=== PATIENT | male | born 1960 | race Caucasian/White ===

== ENCOUNTER 2020-10-18 13:57 | Inpatient (IN) ==
[2020-10-18] MEDS ORDERED: HYDROmorphone 1 MG/ML SYRINGE IV ONE ×2 (14:46→16:54)
[2020-10-18] MEDS ORDERED: ONDANSETRON 4 MG/2 ML VIAL IV ONE (14:46)
--- NOTE | 2020-10-18 14:56 | Emergency Department Note ---
Abdominal Pain HPI General Chief Complaint: Abdominal Pain Stated Complaint: pancreatitis Time Seen by Provider: 10/18/20 14:07 Source: patient Mode of arrival: wheelchair Limitations: no limitations History of Present Illness HPI Narrative: Narrative: Presents to room T5 for evaluation of epigastric abdominal pain. The patient was seen in the emergency department 2 days ago and diagnosed via elevated lipase and CT scan with simple pancreatitis. The patient at that time wished to attempt a trial of outpatient treatment however today followed up with his PCP and was noted to have continued worsening pain with nausea and vomiting. The patient denies any history of biliary disease. CT scan previously showed no evidence of cholelithiasis or biliary ductal dilation. The patient denies alcohol use. He has no knowledge of elevated triglycerides. The patient denies any other complaints at this time. He describes the pain as constant and severe. No exacerbating or alleviating factors. Related Data Home Medications Medication Instructions Recorded Confirmed amlodipine 5 mg tablet 5 mg PO QDAY 06/01/20 10/18/20 aspirin 81 mg tablet,delayed 81 mg PO QDAY 06/01/20 10/18/20 release atorvastatin 10 mg tablet 40 mg PO QDAY tab 06/01/20 10/18/20 clopidogrel 75 mg tablet 75 mg PO QDAY 06/01/20 10/18/20 metoprolol succinate 25 mg 25 mg PO QDAY 06/01/20 10/18/20 tablet,extended release 24 hr Previous Rx's Medication Instructions Recorded hydrocodone-acetaminophen 1 tab PO Q4H PRN #16 tab 10/16/20 promethazine 25 mg PO Q6H PRN #16 tab 10/16/20 Allergies Allergy/AdvReac Type Severity Reaction Status Date / Time No Known Drug Allergies Allergy Verified 10/18/20 13:19 Review of Systems ROS ROS Narrative: Narrative: All systems ED: reviewed and negative except as stated. PFSH Narrative Patient History Narrative: Narrative: Medical/Surgical/Family History All Active Problems (Updated 10/18/20 @ 14:59 by Carlos Santana MD) Abdominal pain (Acute) Acute pancreatitis (Acute) Constipation (Acute) Acute pancreatitis (Acute) Erectile dysfunction (Acute) Viral syndrome (Acute) Left rotator cuff tear (Acute) Rotator cuff tendinitis (Acute) History of coronary artery stent placement (Acute) CAD (coronary artery disease) (Acute) Abnormal stress test (Acute) Claudication (Acute) Lumbar spondylosis (Acute) Abdominal pain, LUQ (Acute) Chronic RUQ pain (Acute) Mid back pain on right side (Acute) Right flank pain (Acute) Abdominal pain (Acute) Eustachian tube dysfunction (Acute) Hx of LASIK (Acute) History of colonoscopy (Acute 05/29/15) Left hip pain (Acute) Headache (Acute) DJD (degenerative joint disease) of thoracic spine (Acute) Dyspnea on exertion (Acute) Skin tag (Acute) Leg length discrepancy (Acute) Spasm of thoracic back muscle (Acute) Bilateral shoulder pain (Acute) Bilateral hip pain (Acute) SOB (shortness of breath) on exertion (Acute) Pre-diabetes (Acute) Chest pain (Acute) Sprain of back (Acute) Obesity (Acute) Hyperglycemia (Acute) Medical History Abdominal pain Abdominal pain, LUQ Chronic RUQ pain DJD (degenerative joint disease) of thoracic spine Dyspnea on exertion Eustachian tube dysfunction Headache Hyperglycemia Left hip pain Leg length discrepancy Lumbar spondylosis Mid back pain on right side Obesity Right flank pain Skin tag Spasm of thoracic back muscle Sprain of back Viral syndrome Surgical History History of colonoscopy (05/29/15) Hx of LASIK Bilateral Family History Father , a Diabetes mellitus Aneurysm Mother Heart disease Brother Heart disease Grandfather , of diabetic coma Diabetes mellitus Paternal Great Social History Smoking Status: Former smoker Substance Use: does not use Exam Narrative Narrative: Narrative: General Limitations: no limitations General appearance: Present alert and in no apparent distress Head Head: Present atraumatic, normocephalic and normal inspection Eye Eye: Present normal appearance and EOMI; Absent conjunctival injection ENT ENT: Present normal exam and mucous membranes moist Neck Neck: Present normal inspection and trachea midline Respiratory Respiratory: Present normal lung sounds bilaterally; Absent respiratory distress Cardiovascular Cardiovascular: Present regular rate, normal rhythm and normal heart sounds Adbominal Abdominal: Present soft; Absent distention, tenderness, guarding and rebound Extremities Extremities: Present normal inspection; Absent tenderness Back Back: Present normal inspection; Absent tenderness Neurological Neurological: Present alert, oriented X3 and CN II-XII intact; Absent motor sensory deficit Psychiatric Psychiatric: Present normal affect and normal mood Skin Skin: Present warm (WNL) and dry; Absent rash Course Vital Signs Vital signs: Vital Signs Temperature 97.7 F 10/18/20 13:59 Pulse Rate 71 10/18/20 13:59 Respiratory Rate 16 10/18/20 13:59 Blood Pressure 130/84 10/18/20 13:59 Pulse Oximetry (%) 96 10/18/20 13:59 Temperature 97.7 F 10/18/20 13:59 Pulse Rate 63 10/18/20 14:41 Respiratory Rate 16 10/18/20 13:59 Blood Pressure 130/84 10/18/20 13:59 Pulse Oximetry (%) 96 10/18/20 14:41 MDM MDM Narrative Medical decision making narrative: Narrative: The patient presents for evaluation of abdominal pain with nausea and vomiting in the context of previous diagnosis. The patient attempted a trial of outpatient treatment however this was unsuccessful and he is having worsening symptoms. The patient has a nonsur gical abdomen but does have significant symptoms. He will benefit from IV fluids with IV analgesics and antiemetics. I discussed the case with the admitting hospitalist, Dr. Ding Medical Records Medical records reviewed: Yes I reviewed the patient's medical records. Lab Data Lab results reviewed: Yes I reviewed the patient's lab results. Discharge Plan Patient/Caregiver Discharge Instructions Pt seen by NEWS GATHERING TECHNICIAN/PA only: No Clinical Impression: Abdominal pain, Acute pancreatitis Patient Disposition: Xfer As Inpt ([facility]) Follow up with: Griselda Andre PA-C [Primary Care Provider] - Prescriptions: No Action clopidogrel 75 mg tablet 75 mg PO QDAY RF: 0 atorvastatin 10 mg tablet 40 mg PO QDAY RF: 0 amlodipine 5 mg tablet 5 mg PO QDAY RF: 0 aspirin 81 mg tablet,delayed release (DR/EC) 81 mg PO QDAY RF: 0 metoprolol succinate 25 mg tablet extended release 24 hr 25 mg PO QDAY RF: 0 promethazine 25 mg tablet 25 mg PO Q6H PRN (Reason: nausea and vomiting) Qty: 16 RF: 0 hydrocodone-acetaminophen 5-325 mg tablet 1 tab PO Q4H PRN (Reason: pain) Qty: 16 RF: 0
[2020-10-18] MEDS ORDERED: 0.9 % SODIUM CHLORIDE 1,000 ML IV SCH ×4 (15:00→17:24)
[2020-10-18 15:34] LABS: Basophils # (Auto) 0.02 K/mcL (0.00-0.20); Basophils % (Auto) 0.2 % (0.0-2.0); Eosinophils % (Auto) 0.9 % (0.0-7.0); Hematocrit 43.5 % (41.0-55.0); Hemoglobin 14.5 g/dL (13.5-16.5); Lymphocytes # (Auto) 1.64 K/mcL (1.50-4.80); Lymphocytes % (Auto) 14.2 % (15.0-49.0); Mean Cell Volume 90.8 fL (80.0-100.0); Mean Corpuscular HGB Conc 33.3 g/dL (31.0-36.0); Mean Platelet Volume 12.1 fL (7.4-10.4); Monocytes # (Auto) 1.14 K/mcL (0.10-0.90); Monocytes % (Auto) 9.9 % (1.0-12.0); Neutrophils % (Auto) 74.8 % (38.0-78.0); Platelet Count 131 K/mcL (140-440); RBC 4.79 M/mcL (4.50-5.90); Red Cell Distribution Width 13.3 % (11.5-14.5); WBC 11.5 K/mcL (4.5-11.0)
[2020-10-18 15:54] LABS: ALT/SGPT 19 U/L (<40); AST/SGOT 15 U/L (<40); Albumin 3.8 gm/dL (3.2-5.2); Albumin/Globulin Ratio 1.2 (1.0-2.3); Alkaline Phosphatase 111 U/L (39-117); Bilirubin,Total 0.6 mg/dL (0.1-1.0); Blood Urea Nitrogen 13 mg/dL (6-20); Calcium 8.8 mg/dL (8.6-10.4); Carbon Dioxide 26 mmol/L (22-30); Chloride 96 mmol/L (96-108); Globulin 3.2 gm/dL (2.2-3.7); Glomerular Filtration Rate 92; Glucose 96 mg/dL (70-105)
[2020-10-18] MEDS ORDERED: morphine 4 MG/ML VIAL IV PRN ×3 (16:10→18:12)
[2020-10-18] MEDS ORDERED: ONDANSETRON 4 MG/2 ML VIAL IV PRN ×2 (16:10→17:24)
[2020-10-18] MEDS ORDERED: HYDROcodone/APAP 5/325MG TABLET PO PRN ×2 (16:10→17:24)
[2020-10-18] MEDS ORDERED: ACETAMINOPHEN 325 MG TABLET PO PRN ×3 (16:10→18:12)
--- NOTE | 2020-10-18 16:29 | Internal Med History&Physical ---
HPI History of Present Illness Patient information: Note initiated : 10/18/20 at 4:21 pm Service Date, if different from initiated Date: [] Patient: Dieter Johnson Jr 60 y/o M admitted on for pancreatitis. Chief Complaint: [] History of present illness: Mr. Alex Soto is a 60 year old M history of CAD status post PCI with 2 stents placement, essential hypertension, mixed dyslipidemia, obesity, presenting with 4-day history of left upper quadrant abdominal pain. There was no prior similar episode. In the past Thursday patient had acute onset left upper quadrant abdominal pain. The pain was 8 out of 10 in severity at its max and currently it is 5 out of 10. The pain is described as sharp. The pain is constant. There is no exacerbating or alleviating factors. The patient is also have associated nausea and nonbloody nonbilious vomiting up to 3 episodes since onset. He is also complained of constipation. He is also committing of decrease in appetite. He denies any fever or chills. There is no shortness of breath. There is no recent changes of his medications. Patient denies any alcohol consumption. He presented to our ED ED on the past Thursday and he was discharged home with prescriptions of [place] and Zofran for symptoms controlled. Earlier today he was seen by his PCP office and he was instructed to come back to the ED for nonresolving symptoms. Constitutional Constitutional: Absent chills, excessive sweating, fatigue, fever(s) and weakness EENT Eyes: Absent blurry vision, change in vision, loss of vision and other visual disturbances Ears: Absent decreased hearing and tinnitus Nose, mouth and throat: Absent abnormal hearing, dry mouth, headache(s), nasal congestion and sore throat Cardiovascular Cardiovascular: Absent chest pain, chest pain at rest, edema, irregular heart rhythm and palpatations Respiratory Respiratory: Absent cough, dyspnea and wheezing Gastrointestinal Gastrointestinal: Present abdominal pain, constipation, nausea and vomiting; Absent diarrhea Musculoskeletal Musculoskeletal: Absent back pain, deformity, limited range of motion, muscle cramps, muscle weakness and numbness Integumentary Integumentary: Absent lesions, rash and wounds Neurological Neurological: Absent focal weakness, headache(s) and numbness Psychiatric Psychiatric: Absent anxiety, depression and hallucinations PFSH PFSH All Active Problems (Updated 10/18/20 @ 16:27 by Jalil Quiroz MD) Mixed dyslipidemia (Acute) Essential (primary) hypertension (Acute) Class 1 obesity with body mass index (BMI) of 32.0 to 32.9 in adult (Acute) Idiopathic acute pancreatitis (Acute) Abdominal pain (Acute) Acute pancreatitis (Acute) Constipation (Acute) Acute pancreatitis (Acute) Erectile dysfunction (Acute) Viral syndrome (Acute) Left rotator cuff tear (Acute) Rotator cuff tendinitis (Acute) History of coronary artery stent placement (Acute) CAD (coronary artery disease) (Acute) Abnormal stress test (Acute) Claudication (Acute) Lumbar spondylosis (Acute) Abdominal pain, LUQ (Acute) Chronic RUQ pain (Acute) Mid back pain on right side (Acute) Right flank pain (Acute) Abdominal pain (Acute) Eustachian tube dysfunction (Acute) Hx of LASIK (Acute) History of colonoscopy (Acute 05/29/15) Left hip pain (Acute) Headache (Acute) DJD (degenerative joint disease) of thoracic spine (Acute) Dyspnea on exertion (Acute) Skin tag (Acute) Leg length discrepancy (Acute) Spasm of thoracic back muscle (Acute) Bilateral shoulder pain (Acute) Bilateral hip pain (Acute) SOB (shortness of breath) on exertion (Acute) Pre-diabetes (Acute) Chest pain (Acute) Sprain of back (Acute) Obesity (Acute) Hyperglycemia (Acute) Medical History Abdominal pain Abdominal pain, LUQ Chronic RUQ pain DJD (degenerative joint disease) of thoracic spine Dyspnea on exertion Eustachian tube dysfunction Headache Hyperglycemia Left hip pain Leg length discrepancy Lumbar spondylosis Mid back pain on right side Obesity Right flank pain Skin tag Spasm of thoracic back muscle Sprain of back Viral syndrome Surgical History History of colonoscopy (05/29/15) Hx of LASIK Bilateral Family History Father , a Diabetes mellitus Aneurysm Mother Heart disease Brother Heart disease Grandfather , of diabetic coma Diabetes mellitus Paternal Great Social History marital status: occupational status: employed occupation: [employer] substance use type: does not use MEDS/ALLERGIES Home Medications and Allergies Home Medications Medication Instructions Recorded Confirmed Type amlodipine 5 mg tablet 5 mg PO QDAY 06/01/20 10/18/20 History aspirin 81 mg tablet,delayed 81 mg PO QDAY 06/01/20 10/18/20 History release atorvastatin 10 mg tablet 40 mg PO QDAY tab 06/01/20 10/18/20 History clopidogrel 75 mg tablet 75 mg PO QDAY 06/01/20 10/18/20 History metoprolol succinate 25 mg 25 mg PO QDAY 06/01/20 10/18/20 History tablet,extended release 24 hr hydrocodone-acetaminophen 1 tab PO Q4H PRN #16 tab 10/16/20 10/18/20 Rx promethazine 25 mg PO Q6H PRN #16 tab 10/16/20 10/18/20 Rx Allergies Allergy/AdvReac Type Severity Reaction Status Date / Time No Known Drug Allergies Allergy Verified 10/18/20 13:19 EXAM Constitutional Vitals: Temp Pulse Resp BP Pulse Ox 36.5 C 64 16 120/82 90 10/18/20 13:59 10/18/20 16:00 10/18/20 13:59 10/18/20 16:00 10/18/20 16:00 General appearance: cooperative and no acute distress Head Head exam: Present atraumatic and normocephalic Eye Eye exam: Present EOMI and PERRL ENT ENT exam: Present mucous membranes moist, normal exam and normal external ear exam Neck Neck exam: Present normal inspection; Absent lymphadenopathy, tenderness and thyromegaly Respiratory Respiratory exam: Absent accessory muscle use, respiratory distress and wheezes Cardiovascular Cardiovascular exam: Present normal rate and rhythm; Absent JVD GI/Abdominal GI/Abdominal exam: Present normal bowel sounds, soft and tenderness; Absent distended, guarding, organomegaly and rebound Rectal Rectal exam: Present deferred Extremities Exam Extremities exam: Present full ROM, normal capillary refill and normal inspection; Absent tenderness Neurological Exam Neurological exam: Present alert, CN II-XII intact and oriented X3; Absent motor sensory deficit Psychiatric Psychiatric exam: Present normal affect and normal mood; Absent anxious and depressed Skin Skin exam: Present dry and intact DATA Data Completed and Pending Labs: Labs from last 24 hours 10/18/20 10/18/20 14:40 14:40 WBC 11.5 H RBC 4.79 Hgb 14.5 Hct 43.5 MCV 90.8 MCH 30.3 MCHC 33.3 RDW 13.3 Plt Count 131 L MPV 12.1 H Neut % (Auto) 74.8 Lymph % (Auto) 14.2 L [place] % (Auto) 9.9 Eos % (Auto) 0.9 Baso % (Auto) 0.2 Lymph # (Auto) 1.64 [place] # (Auto) 1.14 H Eos # (Auto) 0.10 Baso # (Auto) 0.02 Absolute Neutrophils 8.62 H Sodium 132 L Potassium 3.8 Chloride 96 Carbon Dioxide 26 Anion Gap 10.0 BUN 13 Creatinine 0.9 GFR Calculation 92 Glucose 96 Calcium 8.8 Total Bilirubin 0.6 AST 15 ALT 19 Alkaline Phosphatase 111 Total Protein 7.0 Albumin 3.8 Globulin 3.2 Albumin/Globulin Ratio 1.2 Lipase 40 A/P Assessment and plan (1) Idiopathic acute pancreatitis: Status: Acute (2) Constipation: Status: Acute Qualifiers: Constipation type: unspecified constipation type Qualified Code(s): K59.00 - Constipation, unspecified (3) Class 1 obesity with body mass index (BMI) of 32.0 to 32.9 in adult: Status: Acute (4) Essential (primary) hypertension: Status: Acute (5) Mixed dyslipidemia: Status: Acute Narrative A/P Narrative: 1. Acute idiopathic pancreatitis: Admit to inpatient med surg Clear liquid diet, advance to regular as tolerated 2L NS bolus, followed by NS@250cc/hr Zofran IV PRN nausea vomiting [place] PRN moderated pain Morphine 4mg IV q4hr PRN severe pain 2. h/o CAD s/p PCI with 2 stent placement: Aspirin Plavix Statin Oral antihypertensives including Metoprolol ER and Amlodipine 3. Essential HTN: Currently normotensive Oral antihypertensives including Metoprolol ER and Amlodipine 4. Mixed dyslipidemia: Continue statin therapy 5. Class 1 obesity BMI 32.0 to 32.9: Visual Education Teacher patient on life style modifications such as healthy diet and regular exercise in order to lose weight Time Spent With Patient Time: Total time spent is greater than 50% in coordination of care (as documented) at patient's floor/unit and/or counseling patient: Total time spent with greater than 50% in coordination of care (as documented) at patient's floor/unit and/or counseling patient:: 25 - 35 minutes
[2020-10-18] MEDS ORDERED: traZODone HCL 50 MG TABLET PO PRN ×3 (17:24→21:00)
[2020-10-18] MEDS ORDERED: ASPIRIN 81 MG TAB.CHEW CHEWED ONE (17:53)
[2020-10-18] MEDS ORDERED: amLODIPine 5 MG TABLET PO ONE (17:54)
[2020-10-18] MEDS ORDERED: METOPROLOL SUCCINATE 25 MG TAB.XL.24H PO ONE (18:12)
[2020-10-18] MEDS ORDERED: ATORVASTATIN 40 MG TABLET PO ONE (18:12)
[2020-10-18] MEDS ORDERED: CLOPIDOGREL 75 MG TABLET PO ONE (18:12)
[2020-10-18] MEDS: 0.9 % SODIUM CHLORIDE 1,000 ML IV SCH ×2 (18:25→20:37)
[2020-10-18] MEDS ORDERED: morphine 4 MG/ML VIAL ONE ×2 (19:32→22:06)
[2020-10-18] MEDS: SENNOSIDES 1 TABLET PO SCH (20:33)
[2020-10-18] MEDS: DOCUSATE SODIUM 100 MG CAPSULE PO SCH (20:33)
[2020-10-18] MEDS: 0.9 % SODIUM CHLORIDE 10 ML SYRINGE IV SCH (20:33)
[2020-10-18] MEDS ORDERED: DOCUSATE SODIUM 100 MG CAPSULE PO SCH ×2 (21:00)
[2020-10-18] MEDS ORDERED: SENNOSIDES 1 TABLET PO SCH ×2 (21:00)
[2020-10-18] MEDS ORDERED: 0.9 % SODIUM CHLORIDE 10 ML SYRINGE IV SCH ×2 (22:00)
[2020-10-18] MEDS: morphine 4 MG/ML VIAL IV PRN (22:07)
[2020-10-19] MEDS ORDERED: morphine 4 MG/ML VIAL ONE ×3 (00:24→05:18)
[2020-10-19] MEDS: morphine 4 MG/ML VIAL IV PRN ×4 (00:25→09:25)
[2020-10-19] MEDS: 0.9 % SODIUM CHLORIDE 1,000 ML IV SCH ×4 (00:28→20:53)
[2020-10-19] MEDS: 0.9 % SODIUM CHLORIDE 10 ML SYRINGE IV SCH ×3 (05:20→20:55)
[2020-10-19 08:30] LABS: Basophils # (Auto) 0.04 K/mcL (0.00-0.20); Basophils % (Auto) 0.4 % (0.0-2.0); Eosinophils # (Auto) 0.18 K/mcL (0.00-0.70); Eosinophils % (Auto) 1.9 % (0.0-7.0); Hematocrit 39.3 % (41.0-55.0); Hemoglobin 12.8 g/dL (13.5-16.5); Lymphocytes % (Auto) 19.5 % (15.0-49.0); Mean Cell Volume 92.3 fL (80.0-100.0); Mean Corpuscular HGB Conc 32.6 g/dL (31.0-36.0); Mean Platelet Volume 12.1 fL (7.4-10.4); Monocytes # (Auto) 1.02 K/mcL (0.10-0.90); Monocytes % (Auto) 10.5 % (1.0-12.0); Neutrophils % (Auto) 67.7 % (38.0-78.0); Platelet Count 113 K/mcL (140-440); RBC 4.26 M/mcL (4.50-5.90); Red Cell Distribution Width 13.3 % (11.5-14.5); WBC 9.7 K/mcL (4.5-11.0)
[2020-10-19] MEDS ORDERED: amLODIPine 5 MG TABLET PO SCH ×2 (09:00)
[2020-10-19] MEDS ORDERED: METOPROLOL SUCCINATE 25 MG TAB.XL.24H PO SCH ×2 (09:00)
[2020-10-19] MEDS ORDERED: ATORVASTATIN 40 MG TABLET PO SCH ×2 (09:00)
[2020-10-19] MEDS ORDERED: ENOXAPARIN 40 MG/0.4 ML SYRINGE SQ SCH ×2 (09:00)
[2020-10-19] MEDS ORDERED: CLOPIDOGREL 75 MG TABLET PO SCH ×2 (09:00)
[2020-10-19] MEDS ORDERED: ASPIRIN 81 MG TAB.CHEW PO SCH ×2 (09:00)
--- NOTE | 2020-10-19 09:01 | Internal Med Progress Note ---
SUBJECTIVE Subjective Patient information: Note initiated : 10/19/20 at 8:56 am Service Date, if different from initiated Date: [] Patient: Dieter Johnson Jr 60 y/o M admitted on 10/18/20 for pancreatitis. Chief Complaint: [acute idiopathic pancreatitis] History of present illness: Mr. Alex Soto is a 60 year old M history of CAD status post PCI with 2 stents placement, essential hypertension, mixed dyslipidemia, obesity, presenting with 4-day history of left upper quadrant abdominal pain. There was no prior similar episode. In the past Thursday patient had acute onset left upper quadrant abdominal pain. The pain was 8 out of 10 in severity at its max and currently it is 5 out of 10. The pain is described as sharp. The pain is constant. There is no exacerbating or alleviating factors. The patient is also have associated nausea and nonbloody nonbilious vomiting up to 3 episodes since onset. He is also complained of constipation. He is also committing of decrease in appetite. He denies any fever or chills. There is no shortness of breath. There is no recent changes of his medications. Patient denies any alcohol consumption. He presented to our ED ED on the past Thursday an d he was discharged home with prescriptions of [place] and Zofran for symptoms controlled. Earlier today he was seen by his PCP office and he was instructed to come back to the ED for nonresolving symptoms. 10/19: Still not tolerating even clear liquid diet. Still does not have a bowel movement. 8/10 sharp constant LUQ abdominal pain with radiation to the LLQ abdomen. Denies nausea vomiting or diarrhea. Constitutional Vitals: Vital Signs Temp Pulse Resp BP Pulse Ox 37.0 C 67 19 119/79 94 10/19/20 07:18 10/19/20 07:18 10/19/20 07:18 10/19/20 07:18 10/19/20 07:18 Period Temp Pulse Resp BP Sys/[place] Pulse Ox Last 24 Hr 36.5 C-37.3 C 61-76 16-20 116-130/66-86 87-96 Intake and Output 10/18/20 10/19/20 10/19/20 21:59 05:59 13:59 Intake Total 899 2203 Output Total 1175 Balance 899 1028 Weight 110.314 kg Intake & Output: Intake & Output 10/18/20 10/19/20 10/19/20 21:59 05:59 13:59 Intake Total 899 2203 Output Total 1175 Balance 899 1028 Weight 110.314 kg Intake: IV 779 1962 Sodium Chloride 0.9% 1,000 ml @ 779 1963 250 mls/hr IV .Q4H [facility] Rx#: [id number] Oral 120 240 Output: Void Amount 1175 Other: Meal Dinner Percent of Meal Consumed 50% Urine Appearance Clear Urine Color [place] General appearance: cooperative and no acute distress Head Head exam: Present atraumatic and normocephalic Eye Eye exam: Present EOMI and PERRL ENT ENT exam: Present mucous membranes moist, normal exam and normal external ear exam Neck Neck exam: Present normal inspection; Absent lymphadenopathy, tenderness and thyromegaly Respiratory Respiratory exam: Absent accessory muscle use, respiratory distress and wheezes Cardiovascular Cardiovascular exam: Present normal rate and rhythm; Absent JVD GI/Abdominal GI/Abdominal exam: Present normal bowel sounds and soft; Absent organomegaly and tenderness Rectal Rectal exam: Present deferred Extremities Exam Extremities exam: Present full ROM, normal capillary refill and normal inspection; Absent tenderness Neurological Exam Neurological exam: Present alert, CN II-XII intact and oriented X3; Absent motor sensory deficit Psychiatric Psychiatric exam: Present normal affect and normal mood; Absent anxious and depressed Skin Skin exam: Present dry and intact OBJ DATA Labs CBC & Chem 7: 10/19/20 06:25 10/18/20 14:40 Labs: Abnormal Lab Results 10/19/20 10/18/20 10/18/20 06:25 14:40 14:40 WBC 11.5 H RBC 4.26 L Hgb 12.8 L Hct 39.3 L Plt Count 113 L 131 L MPV 12.1 H 12.1 H Lymph % (Auto) 14.2 L [place] # (Auto) 1.02 H 1.14 H Absolute Neutrophils 8.62 H Sodium 132 L Meds: Medications Acetaminophen (Acetaminophen 325 Mg Tablet) 650 mg PO Q6HP PRN; Protocol PRN Reason: Per Pain Protocol/Fever > 101 Hydrocodone Bitart/Acetaminophen (Hydrocodone/Apap 5/325mg Tablet) 1 tab PO Q4HP PRN; Protocol PRN Reason: pain Amlodipine Besylate (Amlodipine 5 Mg Tablet) 5 mg PO QDAY [facility] Aspirin (Aspirin 81 Mg Tab.Chew) 81 mg PO DAILY [facility] Atorvastatin Calcium (Atorvastatin 40 Mg Tablet) 40 mg PO DAILY [facility] Clopidogrel Bisulfate (Clopidogrel 75 Mg Tablet) 75 mg PO QDAY [facility] Docusate Sodium (Docusate Sodium 100 Mg Capsule) 100 mg PO BID [facility] Last Admin: 10/18/20 20:33 Dose: Not Given Documented by: Enoxaparin Sodium (Enoxaparin 40 Mg/0.4 Ml Syringe) 40 mg SQ DAILY [facility] Metoprolol Succinate (Metoprolol Succinate 25 Mg Tab.Xl.24h) 25 mg PO QDAY [facility] Morphine Sulfate (Morphine 4 Mg/Ml Vial) 4 mg IV Q2HP PRN; Protocol PRN Reason: Per Pain Protocol Last Admin: 10/19/20 05:32 Dose: 4 mg Documented by: Ondansetron HCl (Ondansetron 4 Mg/2 Ml Vial) 4 mg IV Q6HP PRN PRN Reason: Nausea And Vomiting Senna (Sennosides 1 Tablet) 2 tab PO HS [facility] Last Admin: 10/18/20 20:33 Dose: Not Given Documented by: Sodium Chloride (0.9 % Sodium Chloride 10 Ml Syringe) 10 ml IV Q8 [facility] Last Admin: 10/19/20 05:20 Dose: Not Given Documented by: Trazodone HCl (Trazodone Hcl 50 Mg Tablet) 50 mg PO HSP PRN PRN Reason: Insomnia A/P Assessment and plan (1) Idiopathic acute pancreatitis: Status: Acute (2) Constipation: Status: Acute Qualifiers: Constipation type: unspecified constipation type Qualified Code(s): K59.00 - Constipation, unspecified (3) Class 1 obesity with body mass index (BMI) of 32.0 to 32.9 in adult: Status: Acute (4) Essential (primary) hypertension: Status: Acute (5) Mixed dyslipidemia: Status: Acute (6) Anemia, normocytic normochromic: Status: Acute Narrative A/P Narrative: 1. Acute idiopathic pancreatitis: Stays in inpatient med surg Clear liquid diet, advance to regular as tolerated NS, decrease from 250 to 100cc/hr Zofran IV PRN nausea vomiting [place] PRN moderated pain Morphine 4mg IV q2hr PRN severe pain 2. h/o CAD s/p PCI with 2 stent placement: Aspirin Plavix Statin Oral antihypertensives including Metoprolol ER and Amlodipine 3. Essential HTN: Currently normotensive Oral antihypertensives including Metoprolol ER and Amlodipine 4. Mixed dyslipidemia: Continue statin therapy 5. Class 1 obesity BMI 32.0 to 32.9: Sustainability Coach patient on life style modifications such as healthy diet and regular exercise in order to lose weight 6. Anemia, normocytic normochromic: cbc w/ auto diff daily, transfuse pRBC if hemoglobin <7.0, active bleeding, or symptomatic GI ppx: not currently indicated DVT ppx: Lovenox Code status: Full Prognosis: stable Disposition: inpatient med/surg Time Spent With Patient Time: Total time spent is greater than 50% in coordination of care (as documented) at patient's floor/unit and/or counseling patient: QUALITY VTE Deep Vein Thrombosis/Pulmonary Embolism Present on Admission: No
[2020-10-19] MEDS ORDERED: SENNOSIDES 1 TABLET PO ONE (09:07)
[2020-10-19] MEDS: DOCUSATE SODIUM 100 MG CAPSULE PO SCH ×2 (09:19→20:54)
[2020-10-19] MEDS: ASPIRIN 81 MG TAB.CHEW PO SCH (09:20)
[2020-10-19] MEDS: ATORVASTATIN 40 MG TABLET PO SCH (09:21)
[2020-10-19] MEDS: ENOXAPARIN 40 MG/0.4 ML SYRINGE SQ SCH (09:22)
[2020-10-19] MEDS: CLOPIDOGREL 75 MG TABLET PO SCH (09:23)
[2020-10-19] MEDS: amLODIPine 5 MG TABLET PO SCH (09:23)
[2020-10-19] MEDS: METOPROLOL SUCCINATE 25 MG TAB.XL.24H PO SCH (09:24)
[2020-10-19 09:44] LABS: ALT/SGPT 13 U/L (<40); AST/SGOT 11 U/L (<40); Albumin 3.5 gm/dL (3.2-5.2); Albumin/Globulin Ratio 1.7 (1.0-2.3); Alkaline Phosphatase 92 U/L (39-117); Bilirubin,Total 0.6 mg/dL (0.1-1.0); Blood Urea Nitrogen 10 mg/dL (6-20); Carbon Dioxide 22 mmol/L (22-30); Chloride 101 mmol/L (96-108); Globulin 2.1 gm/dL (2.2-3.7); Glomerular Filtration Rate 102; Glucose 80 mg/dL (70-105)
[2020-10-19] MEDS: ONDANSETRON 4 MG/2 ML VIAL IV PRN (10:02)
[2020-10-19] MEDS: HYDROcodone/APAP 5/325MG TABLET PO PRN ×3 (11:40→20:53)
[2020-10-19] MEDS: SENNOSIDES 1 TABLET PO SCH (20:54)
[2020-10-20] MEDS: 0.9 % SODIUM CHLORIDE 10 ML SYRINGE IV SCH ×2 (05:24→16:35)
[2020-10-20] MEDS: ONDANSETRON 4 MG/2 ML VIAL IV PRN (06:43)
[2020-10-20] MEDS ORDERED: POLYETHYLENE GLYCOL 3350 17 GM PACKET PO PRN (07:25)
--- NOTE | 2020-10-20 07:30 | Internal Med Progress Note ---
SUBJECTIVE Subjective Patient information: Note initiated : 10/20/20 at 7:26 am Service Date, if different from initiated Date: [] Patient: Dieter Johnson Jr 60 y/o M admitted on 10/18/20 for pancreatitis. Chief Complaint: [acute idiopathic pancreatitis] History of present illness: Mr. Alex Soto is a 60 year old M history of CAD status post PCI with 2 stents placement, essential hypertension, mixed dyslipidemia, obesity, presenting with 4-day history of left upper quadrant abdominal pain. There was no prior similar episode. In the past Thursday patient had acute onset left upper quadrant abdominal pain. The pain was 8 out of 10 in severity at its max and currently it is 5 out of 10. The pain is described as sharp. The pain is constant. There is no exacerbating or alleviating factors. The patient is also have associated nausea and nonbloody nonbilious vomiting up to 3 episodes since onset. He is also complained of constipation. He is also committing of decrease in appetite. He denies any fever or chills. There is no shortness of breath. There is no recent changes of his medications. Patient denies any alcohol consumption. He presented to our ED ED on the past Thursday an d he was discharged home with prescriptions of [place] and Zofran for symptoms controlled. Earlier today he was seen by his PCP office and he was instructed to come back to the ED for nonresolving symptoms. 10/19: Still not tolerating even clear liquid diet. Still does not have a bowel movement. 8/10 sharp constant LUQ abdominal pain with radiation to the LLQ abdomen. Denies nausea vomiting or diarrhea. /: No bowel movement overnight. c/o nausea, denies vomiting. Mild sharp constant LUQ and LLQ abdominal pain. Denies fever or chills or sweating. Constitutional Vitals: Vital Signs Temp Pulse Resp BP Pulse Ox 36.9 C 66 18 129/83 95 10/20/20 07:24 10/20/20 07:24 10/20/20 07:24 10/20/20 07:24 10/20/20 07:24 Period Temp Pulse Resp BP Sys/Worrell Pulse Ox Last 24 Hr 36.8 C-37.2 C 61-69 12-18 121-130/75-83 91-97 Intake and Output 04/30/21 05/01/21 05/01/21 21:59 05:59 13:59 Intake Total 1000 180 Output Total 525 1025 Balance 475 -845 Weight 107.683 kg Intake & Output: Intake & Output 10/19/20 10/20/20 10/20/20 21:59 05:59 13:59 Intake Total 1000 180 Output Total 525 1025 Balance 475 -845 Weight 107.683 kg Intake: IV 1000 Sodium Chloride 0.9% 1,000 ml @ 1000 100 mls/hr IV .Q10H [facility] Rx#: [id number] Oral 180 Output: Void Amount 525 1025 Other: Urine Appearance Clear Clear Urine Color Bright Yellow Bright Yellow # Voids 2 General appearance: cooperative and no acute distress Head Head exam: Present atraumatic and normocephalic Eye Eye exam: Present EOMI and PERRL ENT ENT exam: Present mucous membranes moist, normal exam and normal external ear exam Neck Neck exam: Present normal inspection; Absent lymphadenopathy, tenderness and thyromegaly Respiratory Respiratory exam: Absent accessory muscle use, respiratory distress and wheezes Cardiovascular Cardiovascular exam: Present normal rate and rhythm; Absent JVD GI/Abdominal GI/Abdominal exam: Present normal bowel sounds, soft and tenderness; Absent or ganomegaly Rectal Rectal exam: Present deferred Extremities Exam Extremities exam: Present full ROM, normal capillary refill and normal inspection; Absent tenderness Neurological Exam Neurological exam: Present alert, CN II-XII intact and oriented X3; Absent motor sensory deficit Psychiatric Psychiatric exam: Present normal affect and normal mood; Absent anxious and depressed Skin Skin exam: Present dry and intact OBJ DATA Labs CBC & Chem 7: 10/19/20 06:25 10/19/20 06:25 Labs: Abnormal Lab Results 10/19/20 10/19/20 10/18/20 06:25 06:25 14:40 WBC RBC 4.26 L Hgb 12.8 L Hct 39.3 L Plt Count 113 L MPV 12.1 H Lymph % (Auto) [place] # (Auto) 1.02 H Absolute Neutrophils Sodium 132 L Calcium 8.0 L Total Protein 5.6 L Globulin 2.1 L 10/18/20 14:40 WBC 11.5 H RBC Hgb Hct Plt Count 131 L MPV 12.1 H Lymph % (Auto) 14.2 L [place] # (Auto) 1.14 H Absolute Neutrophils 8.62 H Sodium Calcium Total Protein Globulin Meds: Medications Acetaminophen (Acetaminophen 325 Mg Tablet) 650 mg PO Q6HP PRN; Protocol PRN Reason: Per Pain Protocol/Fever > 101 Hydrocodone Bitart/Acetaminophen (Hydrocodone/Apap 5/325mg Tablet) 1 tab PO Q4HP PRN; Protocol PRN Reason: pain Last Admin: 10/19/20 20:53 Dose: 1 tab Documented by: Amlodipine Besylate (Amlodipine 5 Mg Tablet) 5 mg PO QDAY [facility] Last Admin: 10/19/20 09:23 Dose: 5 mg Documented by: Aspirin (Aspirin 81 Mg Tab.Chew) 81 mg PO DAILY [facility] Last Admin: 10/19/20 09:20 Dose: 81 mg Documented by: Atorvastatin Calcium (Atorvastatin 40 Mg Tablet) 40 mg PO DAILY [facility] Last Admin: 10/19/20 09:21 Dose: 40 mg Documented by: Clopidogrel Bisulfate (Clopidogrel 75 Mg Tablet) 75 mg PO QDAY [facility] Last Admin: 10/19/20 09:23 Dose: 75 mg Documented by: Docusate Sodium (Docusate Sodium 100 Mg Capsule) 100 mg PO BID [facility] Last Admin: 10/19/20 20:54 Dose: 100 mg Documented by: Enoxaparin Sodium (Enoxaparin 40 Mg/0.4 Ml Syringe) 40 mg SQ DAILY [facility] Last Admin: 10/19/20 09:22 Dose: 40 mg Documented by: Sodium Chloride (Sodium Chloride 0.9%) 1,000 mls @ 100 mls/hr IV .Q10H [facility] Last Admin: 10/19/20 20:53 Dose: 100 mls/hr Documented by: Metoprolol Succinate (Metoprolol Succinate 25 Mg Tab.Xl.24h) 25 mg PO QDAY [facility] Last Admin: 10/19/20 09:24 Dose: 25 mg Documented by: Morphine Sulfate (Morphine 4 Mg/Ml Vial) 4 mg IV Q2HP PRN; Protocol PRN Reason: Per Pain Protocol Last Admin: 10/19/20 09:25 Dose: 4 mg Documented by: Ondansetron HCl (Ondansetron 4 Mg/2 Ml Vial) 4 mg IV Q6HP PRN PRN Reason: Nausea And Vomiting Last Admin: 10/20/20 06:43 Dose: 4 mg Documented by: Polyethylene Glycol (Polyethylene Glycol 3350 17 Gm Packet) 17 gm PO DAILYP PRN PRN Reason: Constipation Senna (Sennosides 1 Tablet) 2 tab PO HS [facility] Last Admin: 10/19/20 20:54 Dose: 2 tab Documented by: Sodium Chloride (0.9 % Sodium Chloride 10 Ml Syringe) 10 ml IV Q8 [facility] Last Admin: 10/20/20 05:24 Dose: Not Given Documented by: Trazodone HCl (Trazodone Hcl 50 Mg Tablet) 50 mg PO HSP PRN PRN Reason: Insomnia A/P Assessment and plan (1) Idiopathic acute pancreatitis: Status: Acute (2) Constipation: Status: Acute Qualifiers: Constipation type: unspecified constipation type Qualified Code(s): K59.00 - Constipation, unspecified (3) Class 1 obesity with body mass index (BMI) of 32.0 to 32.9 in adult: Status: Acute (4) Essential (primary) hypertension: Status: Acute (5) Mixed dyslipidemia: Status: Acute (6) Anemia, normocytic normochromic: Status: Acute Narrative A/P Narrative: 1. Acute idiopathic pancreatitis: Stays in inpatient med surg Full liquid diet, advance to regular as tolerated NS@100/hr, saline lock when tolerating diet Zofran IV PRN nausea vomiting [place] PRN moderated pain Morphine 4mg IV q2hr PRN severe pain 2. h/o CAD s/p PCI with 2 stent placement: Aspirin Plavix Statin Oral antihypertensives including Metoprolol ER and Amlodipine 3. Essential HTN: Currently normotensive Oral antihypertensives including Metoprolol ER and Amlodipine 4. Mixed dyslipidemia: Continue statin therapy 5. Class 1 obesity BMI 32.0 to 32.9: Batter Out patient on life style modifications such as healthy diet and regular exercise in order to lose weight 6. Anemia, normocytic normochromic: cbc w/ auto diff daily, transfuse pRBC if hemoglobin <7.0, active bleeding, or symptomatic 7. Constipation: Colace scheduled Senna PRN constipation Miralax PRN constipation GI ppx: not currently indicated DVT ppx: Lovenox Code status: Full Prognosis: stable Disposition: inpatient med/surg Time Spent With Patient Time: Total time spent is greater than 50% in coordination of care (as documented) at patient's floor/unit and/or counseling patient: QUALITY VTE Deep Vein Thrombosis/Pulmonary Embolism Present on Admission: No
[2020-10-20] MEDS: 0.9 % SODIUM CHLORIDE 1,000 ML IV SCH ×2 (07:34→16:35)
[2020-10-20 07:40] LABS: ALT/SGPT 12 U/L (<40); AST/SGOT 12 U/L (<40); Albumin 3.2 gm/dL (3.2-5.2); Alkaline Phosphatase 89 U/L (39-117); Bilirubin,Total 0.5 mg/dL (0.1-1.0); Blood Urea Nitrogen 9 mg/dL (6-20); Calcium 8.3 mg/dL (8.6-10.4); Carbon Dioxide 21 mmol/L (22-30); Chloride 103 mmol/L (96-108); Globulin 3.1 gm/dL (2.2-3.7); Glomerular Filtration Rate 102; Glucose 82 mg/dL (70-105)
[2020-10-20 08:03] LABS: Basophils # (Auto) 0.03 K/mcL (0.00-0.20); Basophils % (Auto) 0.3 % (0.0-2.0); Eosinophils # (Auto) 0.19 K/mcL (0.00-0.70); Hematocrit 40.1 % (41.0-55.0); Hemoglobin 13.2 g/dL (13.5-16.5); Lymphocytes # (Auto) 0.98 K/mcL (1.50-4.80); Lymphocytes % (Auto) 10.2 % (15.0-49.0); Mean Cell Volume 91.3 fL (80.0-100.0); Mean Corpuscular HGB Conc 32.9 g/dL (31.0-36.0); Mean Platelet Volume 11.5 fL (7.4-10.4); Monocytes # (Auto) 0.93 K/mcL (0.10-0.90); Monocytes % (Auto) 9.7 % (1.0-12.0); Neutrophils % (Auto) 77.8 % (38.0-78.0); Platelet Count 123 K/mcL (140-440); RBC 4.39 M/mcL (4.50-5.90); Red Cell Distribution Width 12.9 % (11.5-14.5); WBC 9.6 K/mcL (4.5-11.0)
[2020-10-20] MEDS: ATORVASTATIN 40 MG TABLET PO SCH (08:34)
[2020-10-20] MEDS: amLODIPine 5 MG TABLET PO SCH (08:35)
[2020-10-20] MEDS: CLOPIDOGREL 75 MG TABLET PO SCH (08:35)
[2020-10-20] MEDS: ASPIRIN 81 MG TAB.CHEW PO SCH (08:35)
[2020-10-20] MEDS: DOCUSATE SODIUM 100 MG CAPSULE PO SCH (08:36)
[2020-10-20] MEDS: METOPROLOL SUCCINATE 25 MG TAB.XL.24H PO SCH (08:55)
[2020-10-20] MEDS: ENOXAPARIN 40 MG/0.4 ML SYRINGE SQ SCH (08:56)
--- NOTE | 2020-10-20 17:10 | Discharge Summary ---
Discharge Provider Provider Patient information: Note initiated : 10/20/20 at 5:07 pm Service Date, if different from initiated Date: [] Patient: Dieter Johnson Jr 60 y/o M admitted on 10/18/20 for pancreatitis. Chief Complaint: [] Date of admission: 10/18/20 17:10 Discharge date: 10/20/20 Primary care physician: Griselda Andre PA-C Consults: 10/18/20 15:20 Consult to Physician [CONS] Stat Comment: Consulting Provider: Jalil Quiroz Reason For Exam: Physician to Consult Discharge Meds Discharge Medications Home Medications amlodipine 5 mg tablet 5 mg PO QDAY 06/01/20 [History Confirmed 10/18/20 Last Taken 10/17/20 16:15] aspirin 81 mg tablet,delayed release 81 mg PO QDAY 06/01/20 [History Confirmed 10/18/20 Last Taken 10/17/20 16:15] atorvastatin 10 mg tablet 40 mg PO QDAY tab 06/01/20 [History Confirmed 0 10/18/20 Last Taken 10/17/20 16:15] clopidogrel 75 mg tablet 75 mg PO QDAY 06/01/20 [History Confirmed 10/18/20 Last Taken 10/17/20 15:15] metoprolol succinate 25 mg tablet,extended release 24 hr 25 mg PO QDAY 06/01/20 [History Confirmed 10/18/20 Last Taken 10/17/20 16:15] hydrocodone-acetaminophen 1 tab PO Q4H PRN #16 tab 10/16/20 [Rx Confirmed 10/18/20 Last Taken 10/18/20 10:00] promethazine 25 mg PO Q6H PRN #16 tab 10/16/20 [Rx Confirmed 10/18/20 Last Taken 10/18/20 10:00] docusate sodium [DOK] 100 mg PO BID 7 Days #14 cap 10/20/20 [Rx Last Taken Unknown] sennosides [Senna Lax] 2 tab PO HS 7 Days #14 tab 10/20/20 [Rx Last Taken Unknown] COURSE Hospital Course Hospital course: Patient was admitted on 10/18/20 for acute idiopathic pancreatitis. Initial bowel rest followed by gradual diet advancement, IV fluid replacement, symptomatic controls including Zofran and Morphine were all provided. By 10/20/20, patient's symptoms were mostly resolved, was able to tolerate regular diet, and reached clinical stability. As such, the decision was made to discharge him home with Rx Colace and Senna sent to pharmacy. Instruction to follow up with PCP in 2 week given to him. All questions were answered prior to patient being physically discharged. Discharge diagnosis: acute idiopathic pancreatitis Time Spent with Patient Time attestation: Total time spent providing and/or coordinating discharge services: Time spent: Less than 30 minutes EXAM Constitutional Vitals: Temp Pulse Resp BP Pulse Ox 37.1 C 68 15 121/74 95 10/20/20 16:43 10/20/20 16:43 10/20/20 16:43 10/20/20 16:43 10/20/20 16:43 General appearance: cooperative and no acute distress Head Head exam: Present atraumatic and normocephalic Eye Eye exam: Present EOMI and PERRL ENT ENT exam: Present mucous membranes moist, normal exam and normal external ear exam Neck Neck exam: Present normal inspection; Absent lymphadenopathy, tenderness and thyromegaly Respiratory Respiratory exam: Absent accessory muscle use, respiratory distress and wheezes Cardiovascular Cardiovascular exam: Present normal rate and rhythm; Absent JVD GI/Abdominal GI/Abdominal exam: Present normal bowel sounds and soft; Absent organomegaly and tenderness Rectal Rectal exam: Present deferred Extremities Exam Extremities exam: Present full ROM, normal capillary refill and normal inspection; Absent tenderness Neurological Exam Neurological exam: Present alert, CN II-XII intact and oriented X3; Absent motor sensory deficit Psychiatric Psychiatric exam: Present normal affect and normal mood; Absent anxious and depressed Skin Skin exam: Present dry and intact Discharge Data Data Completed and Pending Labs on day of discharge: Labs from last 24 hours 10/20/20 10/20/20 05:49 05:49 WBC 9.6 RBC 4.39 L Hgb 13.2 L Hct 40.1 L MCV 91.3 MCH 30.1 MCHC 32.9 RDW 12.9 Plt Count 123 L MPV 11.5 H Neut % (Auto) 77.8 Lymph % (Auto) 10.2 L [place] % (Auto) 9.7 Eos % (Auto) 2.0 Baso % (Auto) 0.3 Lymph # (Auto) 0.98 L [place] # (Auto) 0.93 H Eos # (Auto) 0.19 Baso # (Auto) 0.03 Absolute Neutrophils 7.49 Sodium 135 Potassium 3.7 Chloride 103 Carbon Dioxide 21 L Anion Gap 11.0 BUN 9 Creatinine 0.7 GFR Calculation 102 Glucose 82 Calcium 8.3 L Total Bilirubin 0.5 AST 12 ALT 12 Alkaline Phosphatase 89 Total Protein 6.3 Albumin 3.2 Globulin 3.1 Albumin/Globulin Ratio 1.0 Discharge Plan Patient/Caregiver Discharge Instructions Activity: resume usual activities as tolerated Diet: Low Fat Activity Restrictions/Additional Instructions: 2 week PCP follow up appointment indicated Prescriptions: New sennosides [Senna Lax] 8.6 mg Tablet 2 tab PO HS 7 Days Qty: 14 RF: 0 docusate sodium [DOK] 100 mg Capsule 100 mg PO BID 7 Days Qty: 14 RF: 0 Continued clopidogrel 75 mg tablet 75 mg PO QDAY RF: 0 atorvastatin 10 mg tablet 40 mg PO QDAY RF: 0 amlodipine 5 mg tablet 5 mg PO QDAY RF: 0 aspirin 81 mg tablet,delayed release (DR/EC) 81 mg PO QDAY RF: 0 metoprolol succinate 25 mg tablet extended release 24 hr 25 mg PO QDAY RF: 0 promethazine 25 mg tablet 25 mg PO Q6H PRN (Reason: nausea and vomiting) Qty: 16 RF: 0 hydrocodone-acetaminophen 5-325 mg tablet 1 tab PO Q4H PRN (Reason: pain) Qty: 16 RF: 0 Follow Up Plan Follow up with: Griselda Andre PA-C [Primary Care Provider] - Patient Disposition: Home, Self-Care Rehab Potential: Good Overall status at discharge: patient is back to baseline Discharge Orders: Discharge Order (Routine); Ordered 10/20/20 Ordered By: Jalil PATINO VTE Deep Vein Thrombosis/Pulmonary Embolism Present on Admission: No
== END 2020-10-20 17:45 | disposition home or self-care (01) | DRG 440 ==
LOC: ED 13:57 → MEDSUR 17:10
PROVIDERS: ADMIT Internal Medicine; ATTEND Internal Medicine